=== PATIENT | male | born 1970 | race Caucasian/White ===

== ENCOUNTER 2017-11-16 16:15 | Emergency (ER) | payer OTHER ==
[~2017-11-16] VITALS: Ht 182.9 cm; Wt 85.5 kg
[2017-11-16 17:51] LABS: HEMOGLOBIN 13.7 G/DL (12.5-16.6); MCH 29.3 PG (29.0-34.0); MCHC 34.3 G/DL (30.0-36.0); MCV 85.5 FL (86-99); PLATELET COUNT 239 K/uL (156-360); RBC DIS.WIDTH-CV 12.2 % (11.8-14.6); RBC DIS.WIDTH-SD 38.2 % (39-53); RED BLOOD COUNT 4.68 M/uL (4.00-5.50)
[2017-11-16 18:04] LABS: CHLORIDE 105 mEq/L (99-109); POTASSIUM 4.2 mEq/L (3.7-5.4); SODIUM 140 mEq/L (136-147)
[2017-11-16 18:05] LABS: GLUCOSE 96 mg/dL (70-99)
[2017-11-16 18:09] LABS: GFR ESTIMATE (CALCULATED) > 59 mL/min/ (58.99-99999)
[2017-11-16 18:10] LABS: UREA NITROGEN (BUN) 14 mg/dL (9-23)
[2017-11-16] MEDS ORDERED: NAPROSYN500 MG PO (19:22)
[2017-11-16] MEDS ORDERED: FLEXERIL10 MG PO (19:22)
[2017-11-16 19:40] LABS: APPEARANCE CLEAR ((CLEAR)); BILIRUBIN NEGATIVE; BLOOD NEGATIVE; COLOR STRAW ((YELLOW)); GLUCOSE (STRIP) NEGATIVE; KETONES NEGATIVE; LEUKOCYTES NEGATIVE; NITRITE NEGATIVE; PROTEIN (STRIP) NEGATIVE; SPECIFIC GRAVITY 1.051 (1.000-1.030); UROBILINOGEN 0.2 MG/DL (0.2-1.0)
[2017-11-16 20:05] VITALS: BP 144/83
== END 2017-11-16 20:08 | disposition home or self-care (01) ==
LOC: EME 16:15
PROVIDERS: Nurse Practitioner Family
DX: M54.5 Low back pain (principal); K21.9 Gastro-esophageal reflux disease without esophagitis; Z85.72 Personal history of non-Hodgkin lymphomas; Z92.3 Personal history of irradiation; Z72.0 Tobacco use; Z88.0 Allergy status to penicillin
CPT/HCPCS: 74174; 80048; 81003; 85027; 93005; 99281; 99285; J1885; J3010; J7030